=== PATIENT | male | born 2000 | race Caucasian/White ===

== ENCOUNTER 2023-04-06 12:58 | Emergency (ER) | payer OTHER, BC, SELFPAY ==
[2023-04-06 12:59] VITALS: BP 121/83; PULSE 66; RESP 14; TEMP 36.3; O2SAT 100; BMI 21.4
--- NOTE | 2023-04-06 14:02 | CT_ITS ---
STUDY: CT BRAIN WITHOUT CONTRAST REASON FOR EXAM: Male, 22 years old. Trauma, pain RADIATION DOSAGE (If Supplied By Facility): CTDIvol = ( 44.99 ) mGy, DLP = ( 745.49 ) mGycm TECHNIQUE: Transaxial CT imaging of the brain was performed without administration of intravenous contrast material. Individualized dose optimization techniques were used for this CT. COMPARISON: No relevant priors. FINDINGS: Normal soft tissue structures. Normal calvarium. Normal size ventricles and extra-axial spaces for the patient''s age. Normal white matter tracts of the cerebral hemispheres. Normal basal ganglia and thalami. Normal brainstem. Normal cerebellum. There is no intracranial hemorrhage. There are no findings of an acute ischemic infarction. Normal visualized paranasal sinuses. CT/Brain/Head without Contrast IMPRESSION: Normal unenhanced CT scan of the brain. Electronically Signed: Christian Santos MD at 14:23 EST ,
--- NOTE | 2023-04-06 14:03 | EX.ED.GENINJ ---
HPI History of Present Illness Chief Complaint: Head Injury Informant: patient Narrative Narrative: Patient presents after head injury at work. Patient was pulling hard on a ranch trying to tighten a special cool compress and pushing out. He states he was almost hanging from the wrench she had to pull so hard. He states suddenly the special tool broke split in half. He states the wrench are part of the tool or his hand or something hit him in the front right side of the head. He did not lose consciousness. He is not nauseated. No visual change. He states he feels like it is a little bit swollen in the area but no bleeding. It may have even been part of the bushing that popped free. PFSH PFSH Home Medications NK 04/06/23 [History Last Taken Unknown] Allergy/AdvReac Type Severity Reaction Status Date / Time Penicillins Allergy Hives Verified 04/06/23 12:59 Surgical History H/O hand surgery History of dental surgery Social History household members: none Smoking Status: Never smoker ROS ROS ED Constitutional Constitutional ED: Denies chills or fever(s) Eyes Eyes: Denies blurry vision or change in vision ENT ENT ED: Denies rhinorrhea Cardiovascular Cardiovascular: Denies chest pain Respiratory/Chest Respiratory/Chest: Denies cough Gastrointestinal Gastrointestinal: Denies nausea or vomiting Musculoskeletal Musculoskeletal: Denies neck pain Integumentary Denies Abrasions or rash Neurologic Neurologic: Reports headache(s); Denies paresthesias or weakness Hematologic/Lymphatic Hematologic/Lymphatic: Denies easy bleeding or easy bruising EXAM Physical Exam Narrative Exam Narrative: General: Patient awake alert no acute distress nontoxic in appearance. HEENT: I am not seeing any break of the skin. There is no redness or visible bruising yet. He does have a little tenderness in that area. He does send some fullness or swelling. Neck is supple no pain with palpation or range of motion. Lungs are clear bilaterally. Saturations are normal at 100% on room air showing no hypoxia. Heart is regular. No murmur. Abdomen is nontender. Extremities show no injury. Const Vital Signs: 04/06/23 12:59 04/06/23 13:42 Temperature 97.3 F L Temperature Source Temporal Pulse Rate 66 Respiratory Rate 14 Respiratory Effort Normal Non-Labored Respiratory Depth Normal Respiratory Pattern Normal Blood Pressure 121/83 H Blood Pressure Mean 95 Pulse Ox 100 Oxygen Delivery Method Room Air MDM MDM MDM Narrative Medical decision making narrative: Final reading is similar.My independent interpretation of the patient's CT scan of the head without contrast shows no acute process. I think this patient is appropriate for discharge. He has localized head pain after hitting his head with some portion of the tool under fair force. No confusion, neurologic deficit nausea or vomiting. F Radiography Diagnostic Testing: Clinical Impression(s) from Imaging Studies Brain CT 04/06/23 14:02 IMPRESSION: Normal unenhanced CT scan of the brain. Electronically Signed: Christian Santos MD at 14:23 EST , Discharge Plan Triage Chief Complaint: Head Injury ED Provider: Dewey Stroud Dx/Rx/DC Orders Clinical Impression: Head injury, acute Instructions: ED Concussion, ED Head Injury (Adult) Prescriptions: No Action NK Primary Care Provider: Care Physician,No Primary Referrals: Cheko Gonzales, DO [Non-Staff] - 3-5 Days if not improving Disposition Disposition: Home, Self Care
[2023-04-06 15:10] VITALS: BP 117/71; PULSE 66; RESP 16; TEMP 36.3; O2SAT 99
--- NOTE | 2023-04-06 15:12 | ED.RN ---
PT INFORMED OF REQUIREMENT FOR DRUG SCREEN FOR WORKMAN'S COMP CLAIM. PT GIVEN DIRECTIONS TO NOW CLINIC AND INSTRUCTIONS TO GO THERE TO COMPLETE DRUG SCREEN FOR WORKMAN'S COMP. PT VERBALIZES UNDERSTANDING AND DENIES ANY FURTHER QUESTIONS.
== END 2023-04-06 15:15 | disposition home or self-care (01) ==
PROVIDERS: Emergency Provider Emergency Medicine; Visit Provider Emergency Medicine
DX: S09.90XA Unspecified injury of head, initial encounter (principal); W22.8XXA Striking against or struck by other objects, initial encounter; Y93.89 Activity, other specified; Y99.0 Civilian activity done for income or pay; Y92.89 Other specified places as the place of occurrence of the external cause
CPT/HCPCS: 70450; 99282